=== PATIENT | male | born 1960 | race African-American/Black ===

== ENCOUNTER → 2024-03-14 | Outpatient (CLI) | payer OTHER, MEDICAID ==
[~2024-03-14] VITALS: Ht 165.1 cm; Wt 90.7 kg
[2024-03-14] MEDS: ADENOSINE 76 MG in GIVE UN-DILUTED 0 ML IV ONE (09:50)
--- NOTE | 2024-03-14 18:45 | DVHSR ---
APPROVED REPORT Exam: Nuclear Stress Test Indication: SOB BMI: 0 Medical History Medical History: Diabetes, HTN, Hyperlipidemia Stress Test Details Stress Test: Pharmacological stress testing performed using 76 mg of Adenosine HR Resting HR: 69 bpmMax Heart Rate (APMHR): 156.258264 bpm Max HR Achieved: 96 bpmTarget HR (85% APMHR): 132.860219 bpm % of APMHR: 61.54 Recovery HR: 76 bpm BP Resting BP: 127/72 mmHg Recovery BP: 120/63 mmHg ECG Resting ECG: Sinus Rhythm Clinical Reason for Termination: Completed protocol Nurse Comments Recieved pt. from [employer]. A/Ox4 on RA. Connected to defective cigarette slitter, VS stable. PIV flushes well. Re viewed POC. Pt. verbalized understanding of procedure including risks and side effects, agrees for st ress testing. Adenosine stress test performed per protocol. [employer] administered Cardiolite. Pt. tolerated wel l. Pt. stable, no change on exam. VS returned to baseline. Transferred to Stress ECG Conclusion Resting images shows near homogeneous uptake of radioactive tracer throughout the myocardium without evidence of myocardial infarction. Stress images shows near homogeneous uptake of radioactive tracer throughout the myocardium without e vidence of myocardial ischemia. Well-preserved left ventricular systolic function at 55%. Impression: Negative stress test for ischemia, low risk study NM EXAM: Myocardial Perfusion REST/STRESS Imaging Protocol: Rest Tc-99m/Stress Tc-99m 1 day Resting Data Rest SPECT myocardial perfusion imaging was performed in supine position 60 minutes following the int ravenous injection of 9.21 mCi of Tc-99m Sestamibi. Time of rest injection: 827 Time of rest imagin Administration Route: IV Administration Site: Right Arm Pharmacologic Stress Pharmacologic stress test was performed by injecting Adenosine mg IV push followed by the intravenou s injection of 9.21 mCi of Tc-99m Sestamibi. Pharmacologic stress test performed using dobutamine initiated at 5 mcg/kg/min titrated sequentially at 10, 20, 30 and 40 mcg/kg/min to target heart rate. The radioisotope is given IV when 85% of MHR is maintained for 1 min using 22.81 mCi of Tc-99m Sestamibi. Time of stress injection: 954 Time of stress imagin Administration Route: IV Administration Site: Right Arm The images were gated to evaluate regional wall motion and calculate left ventricular ejection fracti on. Nuclear Conclusion ECG Findings: negative for ischemia Clinical Findings: negative for ischemia Nuclear Findings: negative for ischemia Exercise Capacity: not assessed Left Ventricular Function: normal Risk Study: low Resting images shows near homogeneous uptake of radioactive tracer throughout the myocardium without evidence of myocardial infarction. Stress images shows near homogeneous uptake of radioactive tracer throughout the myocardium without e vidence of myocardial ischemia. Well-preserved left ventricular systolic function at 55%. Impression: Negative stress test for ischemia, low risk study
== END | disposition home or self-care (01) ==
LOC: XYW 07:48
PROVIDERS: ATTEND Student in an Organized Health Care Education/Training Program
DX: R06.02 Shortness of breath (principal); E11.9 Type 2 diabetes mellitus without complications; E78.5 Hyperlipidemia, unspecified; I10 Essential (primary) hypertension
CPT/HCPCS: 78452; 93017; A9500; J0153